=== PATIENT | female | born 1985 | race African-American/Black ===

== ENCOUNTER 2023-07-29 15:44 | Outpatient (CLI) | payer MEDICAID | END 2023-07-29 23:59 | disposition home or self-care (01) | LOC: RAD 15:44 | PROVIDERS: ATTEND Nurse Practitioner Family | DX: R10.9 Unspecified abdominal pain (principal); Z87.828 Personal history of other (healed) physical injury and trauma | CPT/HCPCS: 72110; 74018 ==

== ENCOUNTER 2024-08-17 00:47 | Emergency (ER) | payer BC, MEDICAID ==
[~2024-08-17] VITALS: Ht 165.1 cm; Wt 75.2 kg
[2024-08-17 01:17] LABS: URINE HCG NEGATIVE (NEG)
[2024-08-17 01:22] LABS: BILIRUBIN,URINE NEGATIVE (Neg); CLARITY,URINE CLEAR (Clear); COLOR,URINE YELLOW (Yellow); GLUCOSE, URINE NEGATIVE (Neg); KETONES,URINE NEGATIVE (Neg); LEUKOCYTE ESTERASE ,URINE NEGATIVE (Neg); NITRITES, URINE NEGATIVE (Neg); OCCULT BLOOD,URINE NEGATIVE (Neg); PH,URINE 7.5 (4.8-8.0); PROTEIN,URINE NEGATIVE (Neg); UROBILINOGEN,URINE 0.2 E.U/dL (0.2-1.0)
[2024-08-17 01:27] LABS: UA COLLECTION TYPE CLN CATCH MIDSTREAM
--- NOTE | 2024-08-17 02:10 | Physician Documentation ---
History of Present Illness Chief Complaint: Abdominal Pain Stated Complaint: ABD PAIN Time Seen by MD: 02:09 OK to notify your PCP?: Yes Source: patient, RN/MD, RN notes reviewed, old records Mode of Arrival: POV Exam Limitations: no limitations, other HPI 39 year old female presents to the emergency department for complaints of abdominal pain that has been present for three days. Patient describes her pain as sharp and rates it as an 8/10. she states that her pain has gotten progressively worse and is radiating to her legs. Patient states that pain is worse when sitting. She denies any fever, nausea, vomiting or diarrhea. Additionally she denies any pain with urination, or sick contact. Patient states that she had taken Tylenol for the pain. 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 Medication Reconciliation Allergies: Coded Allergies: No Known Allergies (Unverified , 08/17/24) Past Medical History Past Medical History: No Pertinent History Past Surgical History: cholecystectomy Smoking Status: Never smoker Alcohol Use: None Drug Use: none Review of Systems All Other Systems at this time: Reviewed and Negative ROS As stated above in the HPI, otherwise all systems are reviewed and negative. Physical Exam Vital Signs: RN Vital Signs have been reviewed: Yes, Temperature: 98.3, Source: Oral, Heart Rate: 86, Respiratory Rate: 16, BP: 123/78, Pulse Oximetry: 100, Weight: 75.250 Pulse Oximetry Reflects: adequate oxygenation Physical Exam General: The patient is well developed, well nourished, nontoxic appearing and is in no acute distress. Skin: [place], warm and dry with no rashes. HEENT: Head was normocephalic and atraumatic. Eyes - pupils equal, round, reactive to light and accommodation. Extraocular movements were intact. Conjunctivae were nonicteric. Ears - bilateral tympanic membranes were normal. The mouth and oropharynx were clear with moist mucous membranes. There were no pharyngeal exudates or erythema. Neck: Supple and nontender. There was no jugular venous distention, lymphadenopathy, thyromegaly or masses. Chest: Clear to auscultation bilaterally without wheezes, rales or rhonchi. No accessory muscle use. No dullness to percussion. Heart: Rate regular and rhythmic. S1, S2. No murmurs. Palpation of the chest wall was normal. No rubs or thrills. Abdomen: Right lower quadrant pain to palpation with involuntary guarding and a positive heel strike and SOAS sign. Positive bowel sounds. No guarding or rebound. No hepatosplenomegaly or palpable masses. Extremities: No cyanosis, clubbing or edema. The patient moves all extremities. Pulses were equal and symmetric. Neurologic: Cranial nerves II-XII were intact. Sensation was intact to light touch throughout. Motor strength was 5/5 in all four extremities. Deep tendon reflexes were intact in both upper and lower extremities. Psychologic: The patient was oriented to person, place and time. The patient demonstrated appropriate judgement and insight. Progress Results/Orders Results/Orders Completed Orders - ELIGIO REYNOSO MD Urinalysis, Cult If Indicated (08/17/24 01:02) Hcg, Ur Ql (08/17/24 01:02) Vital Signs 08/17/24 08/17/24 08/17/24 00:50 01:10 01:11 Temp 98.3 98.3 Pulse 86 86 Resp 18 16 16 B/P (MAP) 133/97 123/78 (93) Pulse Ox 100 100 Laboratory Tests Test 08/17/24 01:00 Urine Specimen Description Cln catch midstream Urine Color Yellow Urine Clarity Clear Urine pH 7.5 Urine Specific [place] 1.010 Urine Protein Negative Urine Glucose (UA) Negative Urine Ketones Negative Urine Occult Blood Negative Urine Nitrite Negative Urine Bilirubin Negative Urine Urobilinogen 0.2 Urine Leukocyte Esterase Negative Urine Culture Indicated Not ind Volume Urine Centrifuged 10 ml Urine HCG, Qualitative Negative Urine Comment EKG/XRAY/CT/US/VASC/MRI CT : Impression EXAM: CT Abdomen and Pelvis With Intravenous Contrast CLINICAL INDICATION: ABD PAIN TECHNIQUE: Axial computed tomography images of the abdomen and pelvis with intravenous contrast. This CT exam was performed using one or more of the following dose reduction techniques: automated exposure control, adjustment of the mA and/or kV according to patient size, and/or use of iterative reconstruction technique. CONTRAST: COMPARISON: None FINDINGS: LUNG BASES: Unremarkable. No mass. No consolidation. ABDOMEN: LIVER: Hepatomegaly with fatty infiltration. GALLBLADDER AND BILE DUCTS: Gallbladder is surgically absent. No ductal dilation. PANCREAS: Unremarkable. No mass. No ductal dilation. SPLEEN: Unremarkable. No splenomegaly. ADRENALS: Unremarkable. No mass. KIDNEYS AND URETERS: Unremarkable. No solid mass. No hydronephrosis. STOMACH AND BOWEL: Fluid-filled nondistended small bowel. Correlation for en teritis is recommended. No bowel obstruction or pneumoperitoneum. Fecal retention in the colon consistent with constipation. PELVIS: APPENDIX: No findings to suggest acute appendicitis. BLADDER: Unremarkable. No mass. REPRODUCTIVE: Unremarkable as visualized. ABDOMEN and PELVIS: INTRAPERITONEAL SPACE: See above. BONES/JOINTS: No acute fracture. No dislocation. SOFT TISSUES: Unremarkable. VASCULATURE: Unremarkable. No abdominal aortic aneurysm. LYMPH NODES: Unremarkable. No enlarged lymph nodes. OTHER FINDINGS: . . . IMPRESSION: 1. Fluid-filled nondistended small bowel. Correlation for enteritis is recommended. No bowel obstruction or pneumoperitoneum. 2. Hepatomegaly with fatty infiltration. 3. Fecal retention in the colon consistent with constipation. Electronically Signed by:YOBANY MCCOY MD Date & Time: 08/17/24 0508 Departure Disposition: 01 HOME / SELF CARE / HOMELESS Impression: Primary Impression: Right lower quadrant abdominal pain Additional Impression: Constipation Condition: Stable Discharge Instructions: Constipation, Adult, [id number] Referrals: NO PRIMARY CARE PROVIDER (PCP) Signature Scribe Signature: Scribed for Eligio Reynoso MD by Ana Dietz . 08/17/24 02:29 Attestation: The note accurately reflects work and decisions made by me.Eligio Reynoso MD 08/17/24 02:10 ELIGIO REYNOSO MD August 17, 2024 02:10 ANA PRESSLEY August 17, 2024 02:29
[2024-08-17 03:22] LABS: APTT 26 SECONDS (22-32); PROTHROMBIN TIME 10.3 SECONDS (9.0-12.0)
[2024-08-17 03:24] LABS: ALANINE AMINOTRANSFERASE 33 U/L (12-78); ALBUMIN 4.3 G/DL (3.4-5.0); ALBUMIN/GLOBULIN RATIO 1.2 (1.1-1.5); ALKALINE PHOSPHATASE 97 IU/L (46-116); ANION GAP 7 (8-16); ASPARTATE AMINO TRANSFERASE 29 U/L (10-37); BILIRUBIN,DIRECT 0.1 MG/DL (0-0.3); BILIRUBIN,TOTAL 0.4 MG/DL (0.1-1.0); BLOOD UREA NITROGEN 7 MG/DL (7-18); BUN/CREATININE RATIO 10.3 (10.0-20.0); CHLORIDE 103 MMOL/L (99-107); CREATININE 0.68 MG/DL (0.40-0.90); ETHANOL < 10 MG/DL (<10); GLUCOSE 103 MG/DL (70-104); LIPASE 44 U/L (16-77); MAGNESIUM 2.4 MG/DL (1.5-2.4); POTASSIUM 3.9 MMOL/L (3.5-5.1); SODIUM 140 MMOL/L (135-145); TOTAL CARBON DIOXIDE 29.6 MMOL/L (24-32); eCRCL 101 ML/MIN; eGFR > 90 ML/MIN
[2024-08-17 03:30] LABS: URINE AMPHETAMINE SCREEN NEGATIVE (Neg); URINE BARBITUATE SCREEN NEGATIVE (Neg); URINE BENZODIAZEPINES SCREEN NEGATIVE (Neg); URINE CANNABINOID SCREEN NEGATIVE (Neg); URINE COCAINE SCREEN NEGATIVE (Neg); URINE METHADONE SCREEN NEGATIVE (Neg); URINE OPIATE SCREEN NEGATIVE (Neg); URINE PHENCYCLIDINE SCREEN NEGATIVE (Neg)
[2024-08-17] MEDS ORDERED: iohexol 300mg/ml 100ml inj. ONE (03:48)
[2024-08-17] MEDS: normal saline 1000ML IV soln IVB ONE (03:51)
[2024-08-17] MEDS: morphine 2 MG/ML inj. syringe IV PRN (03:52)
--- NOTE | 2024-08-17 05:11 | RADIOLOGY REPORT ---
EXAM: CT Abdomen and Pelvis With Intravenous Contrast CLINICAL INDICATION: ABD PAIN TECHNIQUE: Axial computed tomography images of the abdomen and pelvis with intravenous contrast. Th is CT exam was performed using one or more of the following dose reduction techniques: automated exp osure control, adjustment of the mA and/or kV according to patient size, and/or use of iterative halie nstruction technique. CONTRAST: COMPARISON: None FINDINGS: LUNG BASES: Unremarkable. No mass. No consolidation. ABDOMEN: LIVER: Hepatomegaly with fatty infiltration. GALLBLADDER AND BILE DUCTS: Gallbladder is surgically absent. No ductal dilation. PANCREAS: Unremarkable. No mass. No ductal dilation. SPLEEN: Unremarkable. No splenomegaly. ADRENALS: Unremarkable. No mass. KIDNEYS AND URETERS: Unremarkable. No solid mass. No hydronephrosis. STOMACH AND BOWEL: Fluid-filled nondistended small bowel. Correlation for enteritis is recommended . No bowel obstruction or pneumoperitoneum. Fecal retention in the colon consistent with constipatio n. PELVIS: APPENDIX: No findings to suggest acute appendicitis. BLADDER: Unremarkable. No mass. REPRODUCTIVE: Unremarkable as visualized. ABDOMEN and PELVIS: INTRAPERITONEAL SPACE: See above. BONES/JOINTS: No acute fracture. No dislocation. SOFT TISSUES: Unremarkable. VASCULATURE: Unremarkable. No abdominal aortic aneurysm. LYMPH NODES: Unremarkable. No enlarged lymph nodes. OTHER FINDINGS: . . . IMPRESSION: 1. Fluid-filled nondistended small bowel. Correlation for enteritis is recommended. No bowel obstru ction or pneumoperitoneum. 2. Hepatomegaly with fatty infiltration. 3. Fecal retention in the colon consistent with constipation.
[2024-08-17] MEDS: lactulose 20gm/30ml cup PO ONE (05:47)
[2024-08-17] MEDS: ringers solution, lacted 1,000 ML IV ONE (05:53)
[2024-08-17 06:21] LABS: HEMOGLOBIN 7.5 g/dl (12.0-16.0); MEAN CORPUSCULAR VOLUME 49.8 FL (78-98); RED BLOOD COUNT 5.02 X10'6 (4.20-5.60); WHITE BLOOD COUNT 6.2 X10'3 (4.5-11.0)
[2024-08-17 06:22] LABS: MEAN CORPUSCULAR HGB CONC 30.2 g/dL (33.0-36.5); MEAN PLATELET VOLUME 8.5 FL (7.4-10.4); PLATELET COUNT 313 X10'3 (140-440); RED CELL DISTRIBUTION WIDTH 21.2 % (11.5-14.5)
[2024-08-17 07:27] VITALS: BP 102/72; PULSE 76; RESP 14; TEMP 97.8; O2SAT 99
[2024-08-17 08:38] LABS: TOTAL CELLS COUNTED 100
[2024-08-17 08:39] LABS: ANISOCYTOSIS 3+; HYPOCHROMASIA 3+; MICROCYTOSIS 3+; PLATELET ESTIMATE NORMAL
[2024-08-17 08:40] LABS: ELLIPTOCYTES 1+; LARGE PLATELETS FEW; TEAR DROP CELLS 1+
[2024-08-18] MEDS ORDERED: NO HOME MEDS (06:00)
[2024-08-18] MEDS ORDERED: HYDR-3965 PO (11:45)
[2024-08-18] MEDS ORDERED: NAPR-1166 PO (11:45)
== END 2024-08-17 07:33 | disposition home or self-care (01) ==
LOC: ER 00:48
DX: K59.00 Constipation, unspecified (principal); R10.31 Right lower quadrant pain; Z90.49 Acquired absence of other specified parts of digestive tract
CPT/HCPCS: 36415; 74177; 80048; 80076; 80305; 80320; 81003; 81025; 83690; 83735; 85007; 85025; 85610; 85730; 96361; 96374; 96376; 99285; J2270; J7030; J7120; Q9967

== ENCOUNTER 2024-08-18 05:37 | Emergency (ER) | payer BC ==
[~2024-08-18] VITALS: Ht 165.1 cm; Wt 75.2 kg
[2024-08-18] MEDS ORDERED: NO HOME MEDS (06:00)
--- NOTE | 2024-08-18 06:18 | Physician Documentation ---
History of Present Illness Chief Complaint: Abdominal Pain w/vomiting Stated Complaint: ABDOMINAL PAIN Time Seen by MD: 06:05 Mode of Arrival: POV, Ambulatory HPI This is a very pleasant 39-year-old female who comes in for evaluation of right lower quadrant abdominal pain that she describes as sharp, moderate to severe in its intensity that has been present for the last five days. She had received evaluation was discharged from our facility after negative CT yesterday. She returns for ongoing pain. The particular palliating factors other than she states that staying upright helps her pain. Never experienced this in the past. She was told that she was constipated, gave herself an enema, had multiple bowel movements without improvement of pain. Denies any other symptoms. No concern for tobacco, alcohol or illicit substances use Medication Reconciliation Allergies: Coded Allergies: No Known Allergies (Unverified , 08/17/24) Miscellaneous Medications Home Med List (No Home Medications), (Reported) Past Medical History Past Medical History: No Pertinent History Past Surgical History: cholecystectomy Alcohol Use: None Drug Use: none Review of Systems ROS 10 point review of systems was performed and unless noted above in HPI is negative for acute process/complaint. Physical Exam Vital Signs: Temperature: 98.3, Heart Rate: 78, Respiratory Rate: 16, BP: 132/91, Pulse Oximetry: 99, Weight: 75.200 Oxygen Flow Rate: 0 Physical Exam GENERAL: Awake, alert, oriented, GCS 15, no apparent distress, non-toxic appearing, answers questions, follows commands appropriately. Pleasant young lady examined in bed nine HEENT: Atraumatic, normocephalic, pupils equal, extraocular muscles intact, sclerae anicteric, mucus membranes moist, oropharynx is clear, no stridor. NECK: supple, full active range of motion, trachea midline, no thyromegaly, no lymphadenopathy, no JVD. CARDIOVASCULAR: regular rate/rhythm, no murmurs/gallops/rubs, Pulses are 2+ in all extremities and symmetric. Capillary refill less than 2 seconds. PULMONARY: Nonlabored, good air movement ,no respiratory distress, speaking in full sentences, clear to auscultation bilaterally, no wheezing, no ronchi, no rales, no accessory muscle use. GASTROINTESTINAL: Soft, right lower quadrant tenderness to palpation reproducing chief complaint, non-distended, normal active bowel sounds, no organomegaly, no pulsatile masses, no CVA tenderness. NEUROLOGIC: Lucid with normal mental status. Normal facial symmetry. Moves all extremities symmetrically and with purpose. No truncal ataxia. Speech is fluid without evidence of dysarthria or aphasia, no focal deficits appreciated. MUSCULOSKELETAL: There is full range of motion of all extremities. There is no joint pain or joint swelling or joint erythema. There is no muscle pain or tenderness or swelling. EXTREMITIES: warm, well-perfused, no cyanosis, no clubbing, no edema, no acute deformities. Skin: warm, dry, no rashes or lesions, no jaundice, no petechiae orpurpura. No ecchymosis. PSYCHIATRIC: Normal affect, normal insight, normal concentration. Focused exam: No guarding or rebound Progress Results/Orders Results/Orders Orders - OLESYA BAIRES DO Us Pelvis/With Duplex (08/18/24 06:08) Completed Orders - OLESYA BAIRES DO Morphine 4mg/Ml Inj. (Morphine Inj.) (08/18/24 06:10) Ondansetron Inj. (Zofran 4mg/2ml Vial) (08/18/24 06:10) Vital Signs 08/18/24 08/18/24 08/18/24 05:42 05:50 05:56 Temp 98.3 98.3 Pulse 87 78 Resp 16 20 16 B/P (MAP) 123/81 132/91 (105) Pulse Ox 98 99 O2 Flow Rate 0 0 Laboratory Tests Test 08/18/24 06:02 CBC Comment Chemistry Comments Medical Decision Making Findings Facility Status: [facility], [facility] process The plan was discussed with the patient, who demonstrates clear understanding of the plan and is in agreement with the plan unless otherwise noted in the chart. All questions have been answered, all concerns were addressed unless otherwise documented. I was available throughout their ED stay for frequent reassessment and questions. Differential Diagnoses (considered and possible or likely): [Differential diagnosis considered includes acute appendicitis, acute cholecystitis, pancr eatitis, gastritis, PUD, diverticulitis, mesenteric ischemia, abdominal aortic aneurysm, bowel obstruction, enteritis, colitis, fecal impaction, volvulus, IBS, inflammatory bowel disease, specific food intolerance, peritonitis, perforated viscous, malignancy, UTI, abscess, and abdominal pain NOS. Pelvic source of pain was also considered including endometritis, dysmenorrhea, ovarian cyst, ovarian torsion, PID, TOA, cervicitis, vaginitis, or uterine fibroid. History, physical exam, and workup exclude many of the more serious causes listed above. ] ??Differential Diagnoses (considered and unlikely, not requiring evaluation currently): [Aortic/great vessels dissection was considered but it is unlikely based on absence of ripping, tearing, migratory chest pain, absence of syncope or focal neurologic deficits, physical examination indicating equal and symmetric pulses.] MDM Data Please see [facility] for the following: Independent Historians and external Records Review. Historian: [Patient] Independent Historians: ?[Record review including a note from previous visit in negative CT that showed no evidence of appendicitis, noted enteritis] Medication Management: [Reviewed medication list] Social History and determinants: [Reviewed] Please see the body of the note for the following: Any independent interpretations of ECG, imaging studies. All vitals signs/haemodynamics, ordered tests were independently reviewed and interpreted by myself. Nursing triage complaint and vitals reviewed, additional nursing notes were reviewed as available and I agree unless otherwise noted or documented in contradiction in the chart Vital Signs: Independently reviewed Labs: Independently interpreted Imaging: Independently interpreted Old Medical Records: Independently reviewed, see [facility] for relevant summary and information Pulse Oximetry: [97%] interpreted as [normal on room air] by me [[place]erson: [Regular Rate, Regular rhythm, no ectopy, NSR] reviewed and interpreted by me] Additionally notably showing: [Hemodynamically she is stable. Laboratory workup notable for anemia of 7.9, microcytic, likely chronic nature. Not requiring transfusion at this time. Ultrasound shows blood flow to both ovaries.] Tests considered but not ordered include: [Initially did not consider a CT, however given ongoing relentless pain, we will repeat the CT scan.] Social Determinants of Health Impact: Patient was [facility] in [facility], or [facility] [place] to healthcare due to below par ratio of patient to medical providers. [] Comorbid Conditions Impacting Present Evaluation and Care/Treatment: [None reported] Management Discussions with other Healthcare Providers: [] Treatment and Disposition Medication Management (Given or considered): [Pain management]. See EMR for details Consideration for Hospitalization/Escalation/Deescalation of Care: Admission for observation has been considered, [however the patient is able to tolerate p.o., their symptoms are controlled, they are able to rely on oral medications, and their chief complaint/diagnosis can be managed on outpatient basis.] ?ED Course:?[CT shows no acute intra-abdominal process, incidental finding of right-sided hydronephrosis without evidence of right-sided stone.] ?Shared decision making:?[Patient is hemodynamically stable for discharge home with follow with their primary care provider. [ ] Specific and cautious return precautions provided and discussed with full understanding. Any incidental findings were also discussed and follow up recommendations given. [] All que stions answered. Patient/family were able to verbalize back return precautions. Patient/family agree to plan. Copies of imaging and laboratory studies were provided.] Code status:?FULL Please see the full Electronic Medical Record for full details of nursing documentation, medications list, other records of complete past medical history and conditions, vital signs, laboratory studies, and any radiologic study interpretations by radiologists. Portions of this note were completed using [employer] dictation software and as a result there may exist minor errors in spelling. I have reviewed elements of past family and social history and agree as included in note. Departure Disposition: HOME / SELF CARE / HOMELESS Impression: Primary Impression: Right lower quadrant abdominal pain Condition: Improved Discharge Instructions: Abdominal Pain (Nonspecific) Referrals: NO PRIMARY CARE PROVIDER (PCP) Prescriptions Hydrocodone Bit/Acetaminophen 5/325 MG ([place] 5/325 MG) 5 Mg/325 Mg Tablet 1 TAB PO Q6H PRN for pain, #14 TAB Prov: OLESYA BAIRES DO 08/18/24 Naproxen (Naproxen) 375 Mg Tablet 1 TAB PO Q12H for pain for 30 Days, #60 TAB 0 Refills with food Prov: OLESYA BAIRES DO 08/18/24 Education Educated: Patient, Family Educated regarding: diagnosis, treatment, prognosis, need for follow up Signature Scribe Signature: No scribe Attestation: This note accurately reflects clinical decisions, work performed by myself, DO VIRY Cervantes NICHOLAS M DO August 18, 2024 06:18
[2024-08-18] MEDS: morphine 4 MG/ML inj SYRINge IV ONE (06:22)
[2024-08-18] MEDS: ondansetron/PF 4mg/2ml inj IV ONE ×2 (06:22→08:34)
[2024-08-18 06:24] LABS: BILIRUBIN,URINE NEGATIVE (Neg); CLARITY,URINE CLEAR (Clear); COLOR,URINE YELLOW (Yellow); GLUCOSE, URINE NEGATIVE (Neg); KETONES,URINE 15 mg/dl (Neg); LEUKOCYTE ESTERASE ,URINE NEGATIVE (Neg); NITRITES, URINE NEGATIVE (Neg); OCCULT BLOOD,URINE NEGATIVE (Neg); PROTEIN,URINE NEGATIVE (Neg); UROBILINOGEN,URINE 0.2 E.U/dL (0.2-1.0)
[2024-08-18 06:25] LABS: URINE HCG NEGATIVE (NEG)
[2024-08-18 06:29] LABS: ALANINE AMINOTRANSFERASE 49 U/L (12-78); ALBUMIN 4.4 G/DL (3.4-5.0); ALBUMIN/GLOBULIN RATIO 1.3 (1.1-1.5); ALKALINE PHOSPHATASE 94 IU/L (46-116); ANION GAP 10 (8-16); ASPARTATE AMINO TRANSFERASE 43 U/L (10-37); BILIRUBIN,TOTAL 0.6 MG/DL (0.1-1.0); BLOOD UREA NITROGEN 4 MG/DL (7-18); BUN/CREATININE RATIO 5.9 (10.0-20.0); CALCIUM 8.8 MG/DL (8.5-10.1); CHLORIDE 106 MMOL/L (99-107); CREATININE 0.68 MG/DL (0.40-0.90); GLUCOSE 93 MG/DL (70-104); LIPASE 28 U/L (16-77); POTASSIUM 3.6 MMOL/L (3.5-5.1); SODIUM 143 MMOL/L (135-145); TOTAL CARBON DIOXIDE 26.6 MMOL/L (24-32); TOTAL PROTEIN 7.8 G/DL (6.4-8.2); eCRCL 101 ML/MIN; eGFR > 90 ML/MIN
[2024-08-18 06:34] LABS: HEMOGLOBIN 7.6 g/dl (12.0-16.0); RED BLOOD COUNT 5.22 X10'6 (4.20-5.60); WHITE BLOOD COUNT 6.9 X10'3 (4.5-11.0)
[2024-08-18 06:36] LABS: MEAN PLATELET VOLUME 8.7 FL (7.4-10.4); PLATELET COUNT 385 X10'3 (140-440); RED CELL DISTRIBUTION WIDTH 21.5 % (11.5-14.5)
[2024-08-18 06:36] LABS: UA COLLECTION TYPE NON-SPECIFIED
[2024-08-18 07:01] LABS: HEMATOCRIT 24.9 % (35.0-45.0); MEAN CORPUSCULAR HGB CONC 30.4 g/dL (33.0-36.5); MEAN CORPUSCULAR VOLUME 49.4 FL (78-98)
--- NOTE | 2024-08-18 07:34 | RADIOLOGY REPORT ---
CLINICAL HISTORY: Right adnexal pain. Possible torsion. COMPARISON: Correlation made to CT of the abdomen and pelvis dated 08/17/2024. TECHNIQUE: Transvaginal and transabdominal grayscale sonographic imaging of the uterus and ovaries wa s performed, assisted by color Doppler technique. Duplex Doppler ultrasound of both ovaries was also performed. FINDINGS: The uterus measures 5.8 x 4.5 x 5.9 cm. There is homogeneous echogenicity. Endometrial thic kness measures 0.2 cm, within normal limits. Small amount of free fluid visualized in the cul-de-sac, likely physiologic. Right ovary measures 3.8 x 1.6 x 1.4 cm. Arterial and venous blood flow demonstrated. Multiple ovaria n follicles visualized, with the largest measuring up to 1.2 cm. Left ovary measures 3.3 x 2.2 x 1.9 cm. Arterial and venous blood flow demonstrated. Multiple left ov jaylin follicles. The largest measures up to 0.9 cm. IMPRESSION: 1. No sonographic evidence of ovarian torsion. 2. Bilateral ovarian follicles. 3. Small amount of free fluid in the cul-de-sac, likely physiologic fluid.
[2024-08-18 07:58] LABS: ANISOCYTOSIS 3+; PLATELET ESTIMATE NORMAL; TOTAL CELLS COUNTED 100
[2024-08-18 07:59] LABS: ELLIPTOCYTES 1+; HYPOCHROMASIA 3+; LARGE PLATELETS FEW; MICROCYTOSIS 3+; TEAR DROP CELLS 1+
[2024-08-18 08:00] LABS: SCHISTOCYTES FEW
[2024-08-18] MEDS: ketorolac trometh 30MG/ML vial 30 MG/ML VIAL IV ONE (08:33)
[2024-08-18] MEDS: diatr meglu/diatrizoate 30ml oral sol.-(3 dose) bottle PO SCH (08:35)
[2024-08-18] MEDS: HYDROcodone/acetaminophen 5mg/325mg tablet PO ONE (08:35)
[2024-08-18] MEDS ORDERED: iohexol 300mg/ml 100ml inj. ONE (09:26)
--- NOTE | 2024-08-18 11:27 | RADIOLOGY REPORT ---
Exam: CT CT ABDOMEN PELVIS W/ IV ORAL CONTRAST History: worsening RLQ pain COMPARISON: CT CT ABDOMEN PELVIS W/ IV CONTRAST on DOS: 08/17/24 Technique: Multidetector spiral CT of the abdomen and pelvis was performed from lung bases to pubic symphysis. Intravenous contrast was administered during this examination. Portal venous imaging was obtained. Axial, coronal and sagittal multiplanar reformats were performed by the technologist on a separate workstation. Radiation Dose : Abdomen/Pelvis: CTDIvol 17 mGy, DLP 920 mGy*cm. CONTRAST: Type of contrast: Omni 300 Contrast injected: 100 mL Findings: Lung Bases: No acute or significant lung base finding. Normal heart size. No pleural or pericardial effusion. Liver: The liver is normal in size. No focal lesions. Normal hepatic vascular enhancement. Gallbladder and biliary Tree: Gallbladder is surgically absent. Spleen: Unremarkable Pancreas: The pancreas is normal in appearance without focal lesions or abnormal enhancement. Adrenal Glands: Unremarkable Kidneys: Mild right hydronephrosis. No definite obstructing calculus identified. Calculi in the rig ht pelvis are felt to represent vascular calcifications. No left hydronephrosis. Bladder: Unremarkable Bowel: The stomach is grossly normal in appearance. There are decompressed loops of small bowel later al to the descending colon. Contrast reaches the terminal ileum. Normal appendix is visualized in th e right lower quadrant without findings of appendicitis. Ascites: Free fluid in the pelvis is likely physiologic. Lymphadenopathy: No mesenteric, retroperitoneal or periportal lymphadenopathy. Abdominal wall and Mesentery: Unremarkable. Vasculature: The visualized abdominal aorta is normal in size and caliber. Abdominal and pelvic vess els demonstrate normal enhancement. Pelvic Organs: Unremarkable Musculoskeletal: No aggressive focal bony lesions, acute fractures or dislocation. IMPRESSION: 1. No definite acute abdominal or pelvic finding. Normal-appearing appendix identified. 2. Decompressed loops of small bowel lateral to the descending colon could represent an internal mihir ia. Contrast reaches the terminal ileum demonstrating no evidence of obstruction at this time. Clinic al correlation and continued follow-up is recommended. This can be further evaluated with small-bowel follow-through. 3. Mild right hydronephrosis. No definite obstructing right ureteral calculus. This can be further e valuated with CT urogram. Radiation optimization: All CT scans at this facility use at least one of these dose optimization kristine hniques: Automated exposure control mA and/or kV adjustment per patient size (includes targeted exams where dose is matched to clinical indication) or iterative reconstruction. HS:Y
[2024-08-18] MEDS ORDERED: NAPR-1166 PO (11:45)
[2024-08-18] MEDS ORDERED: HYDR-3965 PO (11:45)
[2024-08-18 12:01] VITALS: BP 118/76; PULSE 80; RESP 18; TEMP 98.3; O2SAT 100
== END 2024-08-18 12:00 | disposition home or self-care (01) ==
LOC: ER 05:37
DX: R10.31 Right lower quadrant pain (principal); Z90.49 Acquired absence of other specified parts of digestive tract
CPT/HCPCS: 74177; 76830; 76856; 80053; 81003; 81025; 83690; 85007; 85025; 93976; 96374; 96375; 99285; J1885; J2270; J2405; Q9963; Q9967